=== PATIENT | female | born 1945 | race Caucasian/White ===

== ENCOUNTER 2018-04-02 09:41 | Emergency (ER) | payer MEDICARE, MEDICAID ==
[~2018-04-02] VITALS: Ht 162.6 cm; Wt 81.2 kg
[~2018-04-02 09:41] MED LIST: ALBU8.5H8 IH; HYDR-565 PO; LISI40TA4 PO; METO-539 PO; NAPR-996 PO; OXYB10TA4 PO; SPIIN INH; TRAM50TA2 PO
[2018-04-02 10:17] LABS: BASOPHILS % (AUTO) 0.3 % (0-1); EOSINOPHILS # (AUTO) 0.3 X10'3 (0-0.9); EOSINOPHILS % (AUTO) 2.7 % (0-6); HEMATOCRIT 43.7 % (35.0-45.0); HEMOGLOBIN 14.8 g/dl (12.0-16.0); LYMPHOCYTES # (AUTO) 1.5 X10'3 (1.1-4.8); LYMPHOCYTES % (AUTO) 12.4 % (21-51); MEAN CORPUSCULAR HEMOGLOBIN 32.1 PG (27.0-31.0); MEAN CORPUSCULAR HGB CONC 33.9 % (33.0-36.5); MEAN CORPUSCULAR VOLUME 94.7 FL (78-98); MEAN PLATELET VOLUME 7.9 FL (7.4-10.4); MONOCYTES # (AUTO) 0.7 X10'3 (0-0.9); MONOCYTES % (AUTO) 5.9 % (2-12); NEUTROPHILS # (AUTO) 9.4 X10'3 (1.8-7.7); NEUTROPHILS % (AUTO) 78.7 % (42-75); PLATELET COUNT 278 X10'3 (140-440); RED BLOOD COUNT 4.61 X10'6 (4.20-5.60); RED CELL DISTRIBUTION WIDTH 13.4 % (11.5-14.5); WHITE BLOOD COUNT 11.9 X10'3 (4.5-11.0)
[2018-04-02 10:36] LABS: ALANINE AMINOTRANSFERASE 21 U/L (12-78); ALBUMIN 4.2 G/DL (3.4-5.0); ALBUMIN/GLOBULIN RATIO 1.1 (1.1-1.5); ALKALINE PHOSPHATASE 61 IU/L (46-116); ANION GAP 8 (8-16); ASPARTATE AMINO TRANSFERASE 12 U/L (10-37); BILIRUBIN,TOTAL 1.1 MG/DL (0.1-1.0); BLOOD UREA NITROGEN 20 MG/DL (7-18); BUN/CREATININE RATIO 19.4 (6.6-38.0); CALCIUM 9.4 MG/DL (8.5-10.1); CHLORIDE 100 MMOL/L (99-107); CREATININE 1.03 MG/DL (0.40-0.90); GLUCOSE 128 MG/DL (70-104); SODIUM 137 MMOL/L (135-145); TOTAL CARBON DIOXIDE 29.4 MMOL/L (24-32); TOTAL PROTEIN 7.9 G/DL (6.4-8.2); eGFR 53 ML/MIN
[2018-04-02] MEDS ORDERED: normal saline 1000ml 1,000 ML IV ONE (10:47)
[2018-04-02] MEDS ORDERED: normal saline 1000ML IV soln IVB ONE ×2 (10:50→14:05)
[2018-04-02] MEDS ORDERED: diphenoxylate/atropine tablet (Lomotil) PO ONE (10:50)
[2018-04-02] MEDS: morphine 4 MG/ML inj SYRINge IV PRN ×2 (10:57→12:28)
[2018-04-02] MEDS ORDERED: iohexol 300mg/ml 100ml inj. ONE (11:44)
[2018-04-02 12:03] LABS: CLARITY,URINE SLIGHTLY CLOUDY (Clear); COLOR,URINE YELLOW (Yellow); GLUCOSE, URINE NEGATIVE (Neg); KETONES,URINE NEGATIVE (Neg); LEUKOCYTE ESTERASE ,URINE LARGE (Neg); NITRITES, URINE NEGATIVE (Neg); OCCULT BLOOD,URINE TRACE-INTACT (Neg); PH,URINE 6.5 (4.8-8.0); PROTEIN,URINE NEGATIVE (Neg); UROBILINOGEN,URINE 0.2 E.U/dL (0.2-1.0)
[2018-04-02 12:06] LABS: UA COLLECTION TYPE NON-SPECIFIED
[2018-04-02 12:17] LABS: BACTERIA,URINE 1+ /HPF (Neg); MUCUS STRANDS FEW /LPF (Neg); RBC,URINE 0-2 /HPF (0-2); RENAL CELLS, URINE FEW /HPF; SQUAMOUS EPITHELIAL CELL,UR MANY /LPF (FEW); WBC CLUMPS,URINE FEW /HPF (NEGATIVE)
[2018-04-02 12:18] LABS: HYALINE CASTS 0-3 /LPF (NEGATIVE)
[2018-04-02] MEDS ORDERED: METR500T4 PO (13:36)
[2018-04-02] MEDS ORDERED: ONDA4TAB9 SL (13:39)
[2018-04-02] MEDS ORDERED: metroNIDAZOLE-Flagyl 500mg/NS 100 ML IV ONE (13:40)
[2018-04-02 13:45] LABS: CLARITY,URINE CLEAR (Clear); COLOR,URINE YELLOW (Yellow); GLUCOSE, URINE NEGATIVE (Neg); KETONES,URINE NEGATIVE (Neg); LEUKOCYTE ESTERASE ,URINE SMALL (Neg); NITRITES, URINE NEGATIVE (Neg); OCCULT BLOOD,URINE TRACE-INTACT (Neg); PH,URINE 5.5 (4.8-8.0); PROTEIN,URINE NEGATIVE (Neg); UROBILINOGEN,URINE 0.2 E.U/dL (0.2-1.0)
[2018-04-02 13:46] LABS: UA COLLECTION TYPE CLN CATCH MIDSTREAM
[2018-04-02 13:53] LABS: WBC,URINE 0-4 /HPF (0-4)
[2018-04-02 13:54] LABS: BACTERIA,URINE FEW /HPF (Neg); RBC,URINE 0-2 /HPF (0-2); SQUAMOUS EPITHELIAL CELL,UR FEW /LPF (FEW)
[2018-04-02 15:33] VITALS: BP 128/62
== END 2018-04-02 15:37 | disposition home or self-care (01) ==
LOC: ER 09:42
DX: K52.9 Noninfective gastroenteritis and colitis, unspecified (principal); E86.0 Dehydration; K21.9 Gastro-esophageal reflux disease without esophagitis; Z88.1 Allergy status to other antibiotic agents; Z88.5 Allergy status to narcotic agent; Z88.8 Allergy status to other drugs, medicaments and biological substances; Z91.011 Allergy to milk products
CPT/HCPCS: 36415; 74177; 80053; 81001; 85025; 85610; 87088; 96361; 96365; 96375; 96376; 99285; J2270; J3490; J7030; Q9967

== ENCOUNTER 2018-07-06 12:51 | Inpatient (IN) | payer MEDICARE, MEDICAID ==
[~2018-07-06] VITALS: Ht 162.6 cm; Wt 80.7 kg
[2018-07-06] MEDS ORDERED: pantoprazole 40 MG vial IV ONE (13:40)
[2018-07-06] MEDS ORDERED: normal saline 1000ML IV soln IVB ONE (13:40)
[2018-07-06] MEDS ORDERED: LORazepam 2 mg/ml vial IV ONE (13:40)
[2018-07-06 14:09] LABS: BASOPHILS % (AUTO) 0 % (0-1); EOSINOPHILS % (AUTO) 0.1 % (0-6); HEMATOCRIT 36.5 % (35.0-45.0); HEMOGLOBIN 12.6 g/dl (12.0-16.0); LYMPHOCYTES # (AUTO) 0.3 X10'3 (1.1-4.8); LYMPHOCYTES % (AUTO) 3.2 % (21-51); MEAN CORPUSCULAR HEMOGLOBIN 31.7 PG (27.0-31.0); MEAN CORPUSCULAR HGB CONC 34.4 % (33.0-36.5); MEAN CORPUSCULAR VOLUME 92.2 FL (78-98); MEAN PLATELET VOLUME 7.9 FL (7.4-10.4); MONOCYTES # (AUTO) 0.6 X10'3 (0-0.9); MONOCYTES % (AUTO) 6.2 % (2-12); NEUTROPHILS # (AUTO) 8.1 X10'3 (1.8-7.7); NEUTROPHILS % (AUTO) 90.5 % (42-75); PLATELET COUNT 177 X10'3 (140-440); RED BLOOD COUNT 3.96 X10'6 (4.20-5.60); RED CELL DISTRIBUTION WIDTH 13.7 % (11.5-14.5); WHITE BLOOD COUNT 8.9 X10'3 (4.5-11.0)
[2018-07-06 14:28] LABS: PLATELET ESTIMATE NORMAL; TOTAL CELLS COUNTED 100
[2018-07-06 14:37] LABS: ALANINE AMINOTRANSFERASE 14 U/L (12-78); ALBUMIN 2.5 G/DL (3.4-5.0); ALBUMIN/GLOBULIN RATIO 0.5 (1.1-1.5); ALKALINE PHOSPHATASE 93 IU/L (46-116); ANION GAP 11 (8-16); ASPARTATE AMINO TRANSFERASE 13 U/L (10-37); BILIRUBIN,TOTAL 1.1 MG/DL (0.1-1.0); BLOOD UREA NITROGEN 18 MG/DL (7-18); BUN/CREATININE RATIO 17.5 (6.6-38.0); CALCIUM 8.9 MG/DL (8.5-10.1); CHLORIDE 99 MMOL/L (99-107); CREATININE 1.03 MG/DL (0.40-0.90); GLUCOSE 130 MG/DL (70-104); LIPASE < 50 U/L (73-393); POTASSIUM 3.4 MMOL/L (3.5-5.1); SODIUM 137 MMOL/L (135-145); TOTAL CARBON DIOXIDE 26.7 MMOL/L (24-32); TOTAL PROTEIN 7.1 G/DL (6.4-8.2); eGFR 53 ML/MIN
[2018-07-06] MEDS ORDERED: ondansetron/PF 4mg/2ml inj IV ONE (14:50)
[2018-07-06 15:01] LABS: CLARITY,URINE CLOUDY (Clear); COLOR,URINE YELLOW (Yellow); GLUCOSE, URINE NEGATIVE (Neg); KETONES,URINE NEGATIVE (Neg); LEUKOCYTE ESTERASE ,URINE MODERATE (Neg); NITRITES, URINE POSITIVE (Neg); OCCULT BLOOD,URINE MODERATE (Neg); PROTEIN,URINE 100 mg/dl (Neg)
[2018-07-06 15:07] LABS: UA COLLECTION TYPE NON-SPECIFIED
[2018-07-06 15:08] LABS: BACTERIA,URINE 4+ /HPF (Neg); MUCUS STRANDS NONE SEEN /LPF (Neg); SQUAMOUS EPITHELIAL CELL,UR NONE SEEN /LPF (FEW); WBC,URINE TNTC /HPF (0-4)
[2018-07-06] MEDS ORDERED: DULO-31 PO (15:29)
[2018-07-06] MEDS ORDERED: PANT-47 PO (15:29)
[2018-07-06] MEDS ORDERED: METO-467 PO (15:29)
[2018-07-06] MEDS ORDERED: sulfamethoxazole/trimethoprim DS (800/160mg) tablet PO ONE (15:35)
[2018-07-06] MEDS ORDERED: normal saline 1000ML IV soln IV ONE (15:50)
[2018-07-06] MEDS ORDERED: magnesium hydroxide 30ml (MOM) UD suspension PO PRN (16:05)
[2018-07-06] MEDS ORDERED: mag hydrox/Alum hydrox/simeth 30ml oral suspension PO PRN (16:05)
[2018-07-06] MEDS ORDERED: potassium Cl 40MEQ/NS 500ml 500 ML IV PRN ×2 (16:05)
[2018-07-06] MEDS ORDERED: magnesium Cl slow-release 64mg tablet PO PRN (16:05)
[2018-07-06] MEDS ORDERED: magnesium 4gm in 100ml NS 100 ML IV PRN (16:05)
[2018-07-06] MEDS ORDERED: potassium Cl 20 mEq SR tablet PO PRN ×2 (16:05)
[2018-07-06] MEDS ORDERED: magnesium 1gm/100ml D5W IVPB 100 ML IV PRN (16:05)
[2018-07-06] MEDS: normal saline 1000ml 1,000 ML IV SCH ×2 (16:36→19:29)
[2018-07-06] MEDS: ondansetron/PF 4mg/2ml inj IV PRN (18:24)
[2018-07-06] MEDS: vancomycin/NS 1 GM ADD-VANTAGE 250 ML IV SCH (18:25)
[2018-07-06 19:05] VITALS: BP 147/77
[2018-07-06] MEDS: oxybutynin 5mg tablet PO SCH (19:15)
[2018-07-06] MEDS: acetaminophen 325mg tablet PO PRN (19:15)
[2018-07-06] MEDS: metoprolol tartrate 50mg tablet PO SCH (19:15)
[2018-07-06] MEDS: HYDROcodone/acetaminophen 10/325mg tab PO PRN (19:28)
[2018-07-06] MEDS: ipratropium 0.5 MG/2.5ML nebule IH SCH (19:39)
[2018-07-06] MEDS: lisinopril 20mg tablet PO SCH (21:00)
[2018-07-06 21:10] VITALS: BP 99/57
[2018-07-06] MEDS ORDERED: normal saline 500ml IV soln 500 ML IV ONE (22:30)
[2018-07-06 23:00] VITALS: BP 91/53
[2018-07-06] MEDS ORDERED: midodrine tablet 2.5 MG TABLET PO STA (23:18)
[2018-07-07] VITALS (7 sets, daily range): BP systolic 97–144; BP diastolic 51–77
[2018-07-07] MEDS: vancomycin/NS 1 GM ADD-VANTAGE 250 ML IV SCH ×2 (04:20→17:32)
[2018-07-07] MEDS: normal saline 1000ml 1,000 ML IV SCH ×2 (04:23→16:14)
[2018-07-07 05:11] LABS: BASOPHILS % (AUTO) 0.1 % (0-1); EOSINOPHILS % (AUTO) 0.3 % (0-6); HEMATOCRIT 28.6 % (35.0-45.0); HEMOGLOBIN 9.5 g/dl (12.0-16.0); LYMPHOCYTES # (AUTO) 0.5 X10'3 (1.1-4.8); LYMPHOCYTES % (AUTO) 6.7 % (21-51); MEAN CORPUSCULAR HEMOGLOBIN 31.4 PG (27.0-31.0); MEAN CORPUSCULAR HGB CONC 33.4 % (33.0-36.5); MEAN CORPUSCULAR VOLUME 94.2 FL (78-98); MEAN PLATELET VOLUME 7.9 FL (7.4-10.4); MONOCYTES # (AUTO) 0.5 X10'3 (0-0.9); NEUTROPHILS # (AUTO) 6.5 X10'3 (1.8-7.7); NEUTROPHILS % (AUTO) 85.9 % (42-75); PLATELET COUNT 131 X10'3 (140-440); RED BLOOD COUNT 3.03 X10'6 (4.20-5.60); RED CELL DISTRIBUTION WIDTH 13.3 % (11.5-14.5); WHITE BLOOD COUNT 7.5 X10'3 (4.5-11.0)
[2018-07-07] MEDS: ondansetron/PF 4mg/2ml inj IV PRN ×2 (05:55→16:16)
[2018-07-07] MEDS: HYDROcodone/acetaminophen 10/325mg tab PO PRN ×3 (05:57→21:53)
[2018-07-07 06:01] LABS: PLATELET ESTIMATE NORMAL; TOTAL CELLS COUNTED 100
[2018-07-07 06:23] LABS: ALANINE AMINOTRANSFERASE 14 U/L (12-78); ALBUMIN 1.9 G/DL (3.4-5.0); ALBUMIN/GLOBULIN RATIO 0.5 (1.1-1.5); ALKALINE PHOSPHATASE 65 IU/L (46-116); ANION GAP 8 (8-16); ASPARTATE AMINO TRANSFERASE 10 U/L (10-37); BILIRUBIN,TOTAL 0.5 MG/DL (0.1-1.0); BLOOD UREA NITROGEN 16 MG/DL (7-18); BUN/CREATININE RATIO 13.9 (6.6-38.0); CALCIUM 7.6 MG/DL (8.5-10.1); CHLORIDE 104 MMOL/L (99-107); CHOL/HDL RATIO 14.8 (0.00-4.99); CHOLESTEROL 118 MG/DL (0-200); CREATININE 1.15 MG/DL (0.40-0.90); GLUCOSE 97 MG/DL (70-104); HDL CHOLESTEROL 8 MG/DL (35-60); LDL CHOLESTEROL 51 MG/DL (50-100); MAGNESIUM 1.8 MG/DL (1.5-2.4); SODIUM 138 MMOL/L (135-145); TOTAL CARBON DIOXIDE 26.1 MMOL/L (24-32); TOTAL PROTEIN 5.4 G/DL (6.4-8.2); TRIGLYCERIDES 267 MG/DL (20-135); eGFR 47 ML/MIN
[2018-07-07] MEDS: ipratropium 0.5 MG/2.5ML nebule IH SCH ×4 (06:37→19:38)
[2018-07-07] MEDS: K and/or MAG REPLACEMENT MC SCH (07:38)
[2018-07-07] MEDS: duloxetine 30mg CAPSULE.DR PO SCH (07:46)
[2018-07-07] MEDS: oxybutynin 5mg tablet PO SCH ×2 (07:47→20:41)
[2018-07-07] MEDS: metoprolol tartrate 50mg tablet PO SCH ×2 (07:47→20:00)
[2018-07-07] MEDS: pantoprazole 40mg Tablet.DR PO SCH (07:47)
[2018-07-07] MEDS: piperacillin/tazo 3.375gm/50ml 50 ML IV SCH ×2 (16:54→23:31)
[2018-07-07] MEDS: albuterol 2.5 MG/3 ML nebule NEB PRN (17:37)
[2018-07-07] MEDS: acetaminophen 325mg tablet PO PRN (19:18)
[2018-07-07] MEDS: lactobacillus rhamnosus 10,000 MMU CELLS/CAPSULE PO SCH (20:41)
[2018-07-07] MEDS: lisinopril 20mg tablet PO SCH (20:42)
[2018-07-08] VITALS: BP 127/55
[2018-07-08] MEDS: normal saline 1000ml 1,000 ML IV SCH ×3 (01:44→21:12)
[2018-07-08] MEDS: ondansetron/PF 4mg/2ml inj IV PRN ×3 (03:28→15:25)
[2018-07-08] MEDS: HYDROcodone/acetaminophen 10/325mg tab PO PRN ×3 (03:52→21:13)
[2018-07-08] MEDS: albuterol 2.5 MG/3 ML nebule NEB PRN ×2 (04:01→13:47)
[2018-07-08] MEDS ORDERED: VANCOMYCIN LEVEL IV ONE (04:30)
[2018-07-08] MEDS: vancomycin/NS 1 GM ADD-VANTAGE 250 ML IV SCH (05:24)
[2018-07-08 06:08] LABS: BASOPHILS % (AUTO) 0 % (0-1); EOSINOPHILS % (AUTO) 0.7 % (0-6); HEMATOCRIT 29.3 % (35.0-45.0); HEMOGLOBIN 9.8 g/dl (12.0-16.0); LYMPHOCYTES # (AUTO) 0.4 X10'3 (1.1-4.8); LYMPHOCYTES % (AUTO) 5.8 % (21-51); MEAN CORPUSCULAR HEMOGLOBIN 31.5 PG (27.0-31.0); MEAN CORPUSCULAR HGB CONC 33.5 % (33.0-36.5); MEAN CORPUSCULAR VOLUME 94.3 FL (78-98); MEAN PLATELET VOLUME 8.1 FL (7.4-10.4); MONOCYTES # (AUTO) 0.5 X10'3 (0-0.9); MONOCYTES % (AUTO) 6.7 % (2-12); NEUTROPHILS # (AUTO) 5.9 X10'3 (1.8-7.7); NEUTROPHILS % (AUTO) 86.8 % (42-75); PLATELET COUNT 140 X10'3 (140-440); RED CELL DISTRIBUTION WIDTH 13.4 % (11.5-14.5); WHITE BLOOD COUNT 6.8 X10'3 (4.5-11.0)
[2018-07-08 06:15] LABS: ALANINE AMINOTRANSFERASE 20 U/L (12-78); ALBUMIN 1.7 G/DL (3.4-5.0); ALBUMIN/GLOBULIN RATIO 0.5 (1.1-1.5); ALKALINE PHOSPHATASE 72 IU/L (46-116); ANION GAP 9 (8-16); ASPARTATE AMINO TRANSFERASE 18 U/L (10-37); BILIRUBIN,TOTAL 0.6 MG/DL (0.1-1.0); BLOOD UREA NITROGEN 12 MG/DL (7-18); BUN/CREATININE RATIO 11.9 (6.6-38.0); CALCIUM 7.9 MG/DL (8.5-10.1); CHLORIDE 104 MMOL/L (99-107); CREATININE 1.01 MG/DL (0.40-0.90); GLUCOSE 114 MG/DL (70-104); SODIUM 137 MMOL/L (135-145); TOTAL CARBON DIOXIDE 23.8 MMOL/L (24-32); TOTAL PROTEIN 5.4 G/DL (6.4-8.2); eGFR 54 ML/MIN
[2018-07-08 06:20] LABS: MAGNESIUM 1.9 MG/DL (1.5-2.4)
[2018-07-08 06:21] LABS: POTASSIUM 3.5 MMOL/L (3.5-5.1)
[2018-07-08 07:00] VITALS: BP 123/54
[2018-07-08] MEDS: piperacillin/tazo 3.375gm/50ml 50 ML IV SCH (07:10)
[2018-07-08] MEDS: duloxetine 30mg CAPSULE.DR PO SCH (07:11)
[2018-07-08] MEDS: pantoprazole 40mg Tablet.DR PO SCH (07:11)
[2018-07-08] MEDS: oxybutynin 5mg tablet PO SCH ×2 (07:11→20:33)
[2018-07-08] MEDS: lactobacillus rhamnosus 10,000 MMU CELLS/CAPSULE PO SCH ×2 (07:11→20:33)
[2018-07-08 07:14] LABS: BANDS% (MANUAL) 10 % (0-10); EOSINOPHILS % (MANUAL) 1 % (0-6); LYMPHOCYTES % (MANUAL) 6 % (21-51); MONOCYTES % (MANUAL) 9 % (2-12); NEUTROPHILS % (MANUAL) 74 % (42-75); PLATELET ESTIMATE NORMAL; TOTAL CELLS COUNTED 100
[2018-07-08 07:15] LABS: TOXIC GRANULATION 1+; TOXIC VACUOLATION 1+
[2018-07-08] MEDS: metoprolol tartrate 50mg tablet PO SCH ×2 (07:38→20:00)
[2018-07-08] MEDS: K and/or MAG REPLACEMENT MC SCH (08:00)
[2018-07-08] MEDS: ipratropium 0.5 MG/2.5ML nebule IH SCH ×4 (08:13→19:34)
[2018-07-08 11:00] VITALS: BP 133/63
[2018-07-08] MEDS: aztreonam inj. 1,000 MG in normal saline 100ml IV soln 100 ML IV SCH ×3 (11:44→23:35)
[2018-07-08] MEDS ORDERED: methylPREDNISolone sod succ 125mg/2ml vial IV ONE (14:30)
[2018-07-08] MEDS ORDERED: vancomycin inj 1,250 MG in normal saline 250ml IV soln 250 ML IV SCH (16:00)
[2018-07-08] MEDS: methylPREDNISolone sod succ 125mg/2ml vial IV SCH ×2 (17:34→23:35)
[2018-07-08 19:15] VITALS: BP 153/70
[2018-07-08] MEDS: lisinopril 20mg tablet PO SCH (20:33)
[2018-07-08] MEDS: nystatin 15 GM powder TP SCH (21:17)
[2018-07-08 23:00] VITALS: BP 139/71
[2018-07-09] MEDS: normal saline 1000ml 1,000 ML IV SCH ×4 (02:04→23:46)
[2018-07-09] MEDS: HYDROcodone/acetaminophen 10/325mg tab PO PRN ×4 (04:09→23:40)
[2018-07-09 04:40] LABS: BASOPHILS % (AUTO) 0 % (0-1); EOSINOPHILS % (AUTO) 0 % (0-6); HEMATOCRIT 29.4 % (35.0-45.0); HEMOGLOBIN 9.9 g/dl (12.0-16.0); LYMPHOCYTES # (AUTO) 0.3 X10'3 (1.1-4.8); LYMPHOCYTES % (AUTO) 6.6 % (21-51); MEAN CORPUSCULAR HEMOGLOBIN 31.4 PG (27.0-31.0); MEAN CORPUSCULAR HGB CONC 33.5 % (33.0-36.5); MEAN CORPUSCULAR VOLUME 93.6 FL (78-98); MEAN PLATELET VOLUME 7.9 FL (7.4-10.4); MONOCYTES # (AUTO) 0.2 X10'3 (0-0.9); MONOCYTES % (AUTO) 4.7 % (2-12); NEUTROPHILS # (AUTO) 4.6 X10'3 (1.8-7.7); NEUTROPHILS % (AUTO) 88.7 % (42-75); PLATELET COUNT 173 X10'3 (140-440); RED BLOOD COUNT 3.14 X10'6 (4.20-5.60); RED CELL DISTRIBUTION WIDTH 14.7 % (11.5-14.5); WHITE BLOOD COUNT 5.2 X10'3 (4.5-11.0)
[2018-07-09 05:00] LABS: ALANINE AMINOTRANSFERASE 11 U/L (12-78); ALBUMIN 1.7 G/DL (3.4-5.0); ALBUMIN/GLOBULIN RATIO 0.4 (1.1-1.5); ALKALINE PHOSPHATASE 83 IU/L (46-116); ANION GAP 6 (8-16); ASPARTATE AMINO TRANSFERASE 10 U/L (10-37); BILIRUBIN,TOTAL 0.4 MG/DL (0.1-1.0); BLOOD UREA NITROGEN 16 MG/DL (7-18); BUN/CREATININE RATIO 16.7 (6.6-38.0); CALCIUM 8.4 MG/DL (8.5-10.1); CHLORIDE 107 MMOL/L (99-107); CREATININE 0.96 MG/DL (0.40-0.90); GLUCOSE 169 MG/DL (70-104); MAGNESIUM 2.3 MG/DL (1.5-2.4); POTASSIUM 3.5 MMOL/L (3.5-5.1); SODIUM 141 MMOL/L (135-145); TOTAL CARBON DIOXIDE 27.7 MMOL/L (24-32); eGFR 57 ML/MIN
[2018-07-09 07:45] VITALS: BP 155/72
[2018-07-09] MEDS: ipratropium 0.5 MG/2.5ML nebule IH SCH ×3 (07:59→15:20)
[2018-07-09] MEDS: K and/or MAG REPLACEMENT MC SCH (08:00)
[2018-07-09] MEDS: aztreonam inj. 1,000 MG in normal saline 100ml IV soln 100 ML IV SCH ×3 (08:56→23:40)
[2018-07-09] MEDS: lactobacillus rhamnosus 10,000 MMU CELLS/CAPSULE PO SCH ×2 (08:57→20:10)
[2018-07-09] MEDS: pantoprazole 40mg Tablet.DR PO SCH (08:57)
[2018-07-09] MEDS: metoprolol tartrate 50mg tablet PO SCH ×2 (08:58→20:10)
[2018-07-09] MEDS: oxybutynin 5mg tablet PO SCH ×2 (08:58→20:10)
[2018-07-09] MEDS: duloxetine 30mg CAPSULE.DR PO SCH (08:58)
[2018-07-09] MEDS: methylPREDNISolone sod succ 125mg/2ml vial IV SCH ×3 (08:59→23:40)
[2018-07-09] MEDS: nystatin 15 GM powder TP SCH ×3 (09:01→20:12)
[2018-07-09] MEDS: albuterol 2.5 MG/3 ML nebule NEB PRN ×2 (11:39→19:13)
[2018-07-09 12:42] VITALS: BP 133/60
[2018-07-09 20:00] VITALS: BP 136/78
[2018-07-09] MEDS: lisinopril 20mg tablet PO SCH (20:10)
[2018-07-10] VITALS: BP 134/68
[2018-07-10] MEDS ORDERED: VANCOMYCIN LEVEL IV ONE (03:30)
[2018-07-10 05:14] LABS: BASOPHILS % (AUTO) 0 % (0-1); EOSINOPHILS % (AUTO) 0 % (0-6); HEMATOCRIT 29.4 % (35.0-45.0); HEMOGLOBIN 9.9 g/dl (12.0-16.0); LYMPHOCYTES # (AUTO) 0.6 X10'3 (1.1-4.8); LYMPHOCYTES % (AUTO) 6.5 % (21-51); MEAN CORPUSCULAR HEMOGLOBIN 31.3 PG (27.0-31.0); MEAN CORPUSCULAR HGB CONC 33.5 % (33.0-36.5); MEAN CORPUSCULAR VOLUME 93.2 FL (78-98); MEAN PLATELET VOLUME 8.6 FL (7.4-10.4); MONOCYTES # (AUTO) 0.4 X10'3 (0-0.9); MONOCYTES % (AUTO) 4.4 % (2-12); NEUTROPHILS # (AUTO) 8.5 X10'3 (1.8-7.7); NEUTROPHILS % (AUTO) 89.1 % (42-75); PLATELET COUNT 224 X10'3 (140-440); RED BLOOD COUNT 3.15 X10'6 (4.20-5.60); RED CELL DISTRIBUTION WIDTH 14.9 % (11.5-14.5); WHITE BLOOD COUNT 9.6 X10'3 (4.5-11.0)
[2018-07-10 05:45] LABS: ALANINE AMINOTRANSFERASE 17 U/L (12-78); ALBUMIN/GLOBULIN RATIO 0.5 (1.1-1.5); ALKALINE PHOSPHATASE 76 IU/L (46-116); ANION GAP 8 (8-16); ASPARTATE AMINO TRANSFERASE 14 U/L (10-37); BILIRUBIN,TOTAL 0.3 MG/DL (0.1-1.0); BLOOD UREA NITROGEN 26 MG/DL (7-18); BUN/CREATININE RATIO 23.9 (6.6-38.0); CALCIUM 8.7 MG/DL (8.5-10.1); CHLORIDE 103 MMOL/L (99-107); CREATININE 1.09 MG/DL (0.40-0.90); GLUCOSE 186 MG/DL (70-104); MAGNESIUM 2.4 MG/DL (1.5-2.4); POTASSIUM 3.7 MMOL/L (3.5-5.1); SODIUM 137 MMOL/L (135-145); TOTAL CARBON DIOXIDE 26.4 MMOL/L (24-32); TOTAL PROTEIN 6.2 G/DL (6.4-8.2); eGFR 49 ML/MIN
[2018-07-10] MEDS: HYDROcodone/acetaminophen 10/325mg tab PO PRN ×3 (05:57→20:59)
[2018-07-10 07:08] VITALS: BP 176/81
[2018-07-10] MEDS: ipratropium 0.5 MG/2.5ML nebule IH SCH ×5 (07:27→20:58)
[2018-07-10] MEDS: K and/or MAG REPLACEMENT MC SCH (08:00)
[2018-07-10] MEDS: aztreonam inj. 1,000 MG in normal saline 100ml IV soln 100 ML IV SCH ×2 (08:36→16:38)
[2018-07-10] MEDS: pantoprazole 40mg Tablet.DR PO SCH (08:41)
[2018-07-10] MEDS: lactobacillus rhamnosus 10,000 MMU CELLS/CAPSULE PO SCH ×2 (08:41→20:59)
[2018-07-10] MEDS: methylPREDNISolone sod succ 125mg/2ml vial IV SCH ×2 (08:41→16:37)
[2018-07-10] MEDS: duloxetine 30mg CAPSULE.DR PO SCH (08:41)
[2018-07-10] MEDS: metoprolol tartrate 50mg tablet PO SCH ×2 (08:41→21:00)
[2018-07-10] MEDS: oxybutynin 5mg tablet PO SCH ×2 (08:42→20:59)
[2018-07-10] MEDS: nystatin 15 GM powder TP SCH ×3 (08:43→22:54)
[2018-07-10] MEDS: normal saline 1000ml 1,000 ML IV SCH (10:04)
[2018-07-10] MEDS ORDERED: furosemide 20 MG/2 ML vial IV ONE (11:00)
[2018-07-10 11:44] VITALS: BP 164/86
[2018-07-10] MEDS: albuterol 2.5 MG/3 ML nebule NEB PRN ×2 (17:53→20:59)
[2018-07-10 19:30] VITALS: BP 175/76
[2018-07-10] MEDS: lisinopril 20mg tablet PO SCH (21:01)
[2018-07-11] VITALS (8 sets, daily range): BP systolic 163–183; BP diastolic 71–88
[2018-07-11] MEDS: methylPREDNISolone sod succ 125mg/2ml vial IV SCH ×3 (00:13→16:04)
[2018-07-11] MEDS: aztreonam inj. 1,000 MG in normal saline 100ml IV soln 100 ML IV SCH ×3 (00:13→15:52)
[2018-07-11] MEDS: albuterol 2.5 MG/3 ML nebule NEB PRN ×3 (02:26→23:41)
[2018-07-11] MEDS: LORazepam 0.5 MG tablet PO PRN (02:30)
[2018-07-11] MEDS ORDERED: furosemide 10 MG/1 ML 10ml inj IV ONE (02:35)
[2018-07-11] MEDS ORDERED: nitroGLYCERIN 1gm ointment UD TP ONE (02:35)
[2018-07-11 03:02] LABS: BASOPHILS % (AUTO) 0 % (0-1); EOSINOPHILS # (AUTO) 0.1 X10'3 (0-0.9); EOSINOPHILS % (AUTO) 1.5 % (0-6); HEMATOCRIT 29.9 % (35.0-45.0); HEMOGLOBIN 10.1 g/dl (12.0-16.0); LYMPHOCYTES # (AUTO) 0.5 X10'3 (1.1-4.8); LYMPHOCYTES % (AUTO) 5.8 % (21-51); MEAN CORPUSCULAR HEMOGLOBIN 31.2 PG (27.0-31.0); MEAN CORPUSCULAR HGB CONC 33.8 % (33.0-36.5); MEAN CORPUSCULAR VOLUME 92.4 FL (78-98); MEAN PLATELET VOLUME 7.7 FL (7.4-10.4); MONOCYTES # (AUTO) 0.4 X10'3 (0-0.9); MONOCYTES % (AUTO) 4.4 % (2-12); NEUTROPHILS # (AUTO) 8.2 X10'3 (1.8-7.7); NEUTROPHILS % (AUTO) 88.3 % (42-75); PLATELET COUNT 286 X10'3 (140-440); RED BLOOD COUNT 3.23 X10'6 (4.20-5.60); RED CELL DISTRIBUTION WIDTH 14.6 % (11.5-14.5); WHITE BLOOD COUNT 9.3 X10'3 (4.5-11.0)
[2018-07-11] MEDS: HYDROcodone/acetaminophen 10/325mg tab PO PRN ×4 (03:09→21:07)
[2018-07-11 03:41] LABS: ANION GAP 7 (8-16); BLOOD UREA NITROGEN 29 MG/DL (7-18); CALCIUM 8.4 MG/DL (8.5-10.1); CHLORIDE 102 MMOL/L (99-107); CREATININE 1.16 MG/DL (0.40-0.90); GLUCOSE 160 MG/DL (70-104); POTASSIUM 3.5 MMOL/L (3.5-5.1); SODIUM 137 MMOL/L (135-145); TOTAL CARBON DIOXIDE 28.4 MMOL/L (24-32); eGFR 46 ML/MIN
[2018-07-11 03:42] LABS: ALANINE AMINOTRANSFERASE 7 U/L (12-78); ALBUMIN 2.2 G/DL (3.4-5.0); ALBUMIN/GLOBULIN RATIO 0.5 (1.1-1.5); ALKALINE PHOSPHATASE 73 IU/L (46-116); ASPARTATE AMINO TRANSFERASE 4 U/L (10-37); BILIRUBIN,TOTAL 0.4 MG/DL (0.1-1.0); MAGNESIUM 2.3 MG/DL (1.5-2.4); TOTAL PROTEIN 6.3 G/DL (6.4-8.2)
[2018-07-11] MEDS: K and/or MAG REPLACEMENT MC SCH (08:00)
[2018-07-11] MEDS: duloxetine 30mg CAPSULE.DR PO SCH (09:04)
[2018-07-11] MEDS: pantoprazole 40mg Tablet.DR PO SCH (09:04)
[2018-07-11] MEDS: metoprolol tartrate 50mg tablet PO SCH ×2 (09:05→21:11)
[2018-07-11] MEDS: oxybutynin 5mg tablet PO SCH ×2 (09:05→21:12)
[2018-07-11] MEDS: lactobacillus rhamnosus 10,000 MMU CELLS/CAPSULE PO SCH ×2 (09:05→21:11)
[2018-07-11] MEDS: nystatin 15 GM powder TP SCH ×3 (09:05→21:12)
[2018-07-11] MEDS: ipratropium 0.5 MG/2.5ML nebule IH SCH ×3 (11:39→19:28)
[2018-07-11] MEDS: furosemide 20 MG/2 ML vial IV SCH (21:09)
[2018-07-11] MEDS: ondansetron/PF 4mg/2ml inj IV PRN (21:31)
[2018-07-11] MEDS: lisinopril 20mg tablet PO SCH (22:41)
[2018-07-12 00:04] VITALS: BP 173/76
[2018-07-12] MEDS: aztreonam inj. 1,000 MG in normal saline 100ml IV soln 100 ML IV SCH ×4 (00:28→23:45)
[2018-07-12] MEDS: LORazepam 0.5 MG tablet PO PRN (00:45)
[2018-07-12] MEDS: albuterol 2.5 MG/3 ML nebule NEB PRN (03:31)
[2018-07-12] MEDS: HYDROcodone/acetaminophen 10/325mg tab PO PRN ×5 (03:54→21:44)
[2018-07-12] MEDS: ipratropium 0.5 MG/2.5ML nebule IH SCH ×4 (07:20→19:06)
[2018-07-12 08:00] VITALS: BP 170/65
[2018-07-12] MEDS: K and/or MAG REPLACEMENT MC SCH (08:00)
[2018-07-12] MEDS: lactobacillus rhamnosus 10,000 MMU CELLS/CAPSULE PO SCH ×2 (08:06→20:09)
[2018-07-12] MEDS: duloxetine 30mg CAPSULE.DR PO SCH (08:06)
[2018-07-12] MEDS: methylPREDNISolone sod succ/PF 40mg inj. IV SCH ×2 (08:07→20:10)
[2018-07-12] MEDS: oxybutynin 5mg tablet PO SCH ×2 (08:07→20:10)
[2018-07-12] MEDS: metoprolol tartrate 50mg tablet PO SCH ×3 (08:07→23:45)
[2018-07-12] MEDS: pantoprazole 40mg Tablet.DR PO SCH (08:07)
[2018-07-12] MEDS: furosemide 20 MG/2 ML vial IV SCH ×2 (08:07→20:10)
[2018-07-12] MEDS: nystatin 15 GM powder TP SCH ×3 (08:10→21:10)
[2018-07-12 19:00] VITALS: BP 165/68
[2018-07-12] MEDS: lisinopril 20mg tablet PO SCH (21:08)
[2018-07-13] VITALS: BP 180/71
[2018-07-13 01:00] VITALS: BP 102/54
[2018-07-13] MEDS: HYDROcodone/acetaminophen 10/325mg tab PO PRN ×6 (02:29→23:53)
[2018-07-13 07:07] VITALS: BP 107/65
[2018-07-13] MEDS: ipratropium 0.5 MG/2.5ML nebule IH SCH ×4 (07:21→19:02)
[2018-07-13] MEDS: metoprolol tartrate 50mg tablet PO SCH ×2 (07:39→19:39)
[2018-07-13] MEDS: pantoprazole 40mg Tablet.DR PO SCH (07:39)
[2018-07-13] MEDS: oxybutynin 5mg tablet PO SCH ×2 (07:39→19:39)
[2018-07-13] MEDS: lactobacillus rhamnosus 10,000 MMU CELLS/CAPSULE PO SCH ×2 (07:39→19:39)
[2018-07-13] MEDS: duloxetine 30mg CAPSULE.DR PO SCH (07:39)
[2018-07-13] MEDS: aztreonam inj. 1,000 MG in normal saline 100ml IV soln 100 ML IV SCH ×3 (07:39→23:53)
[2018-07-13] MEDS: furosemide 20 MG/2 ML vial IV SCH ×2 (07:40→19:37)
[2018-07-13] MEDS: nystatin 15 GM powder TP SCH ×3 (07:40→21:10)
[2018-07-13] MEDS: methylPREDNISolone sod succ/PF 40mg inj. IV SCH (07:40)
[2018-07-13] MEDS: K and/or MAG REPLACEMENT MC SCH (08:00)
[2018-07-13 13:03] VITALS: BP 151/55
[2018-07-13] MEDS ORDERED: predniSONE 20 mg tablet PO ONE (13:45)
[2018-07-13 18:30] VITALS: BP 112/73
[2018-07-13] MEDS: lisinopril 20mg tablet PO SCH (21:10)
[2018-07-14] VITALS: BP 169/73
[2018-07-14] MEDS: HYDROcodone/acetaminophen 10/325mg tab PO PRN ×5 (03:59→21:01)
[2018-07-14 07:19] VITALS: BP 138/72
[2018-07-14] MEDS: oxybutynin 5mg tablet PO SCH ×2 (07:32→20:59)
[2018-07-14] MEDS: aztreonam inj. 1,000 MG in normal saline 100ml IV soln 100 ML IV SCH ×2 (07:32→16:23)
[2018-07-14] MEDS: lactobacillus rhamnosus 10,000 MMU CELLS/CAPSULE PO SCH ×2 (07:32→20:59)
[2018-07-14] MEDS: metoprolol tartrate 50mg tablet PO SCH ×2 (07:32→20:59)
[2018-07-14] MEDS: pantoprazole 40mg Tablet.DR PO SCH (07:32)
[2018-07-14] MEDS: duloxetine 30mg CAPSULE.DR PO SCH (07:32)
[2018-07-14] MEDS: furosemide 20 MG/2 ML vial IV SCH ×2 (07:33→20:59)
[2018-07-14] MEDS: K and/or MAG REPLACEMENT MC SCH (07:42)
[2018-07-14] MEDS: nystatin 15 GM powder TP SCH ×3 (07:42→21:03)
[2018-07-14] MEDS: prednisone 10mg tablet PO SCH (08:24)
[2018-07-14] MEDS: ipratropium 0.5 MG/2.5ML nebule IH SCH ×4 (08:32→19:45)
[2018-07-14 11:53] VITALS: BP 145/59
[2018-07-14 19:15] VITALS: BP 146/53
[2018-07-14] MEDS: lisinopril 20mg tablet PO SCH (21:00)
[2018-07-14] MEDS: heparin, porcine 5000 units/ml vial SQ SCH (21:01)
[2018-07-14 23:00] VITALS: BP 144/55
[2018-07-15] MEDS: aztreonam inj. 1,000 MG in normal saline 100ml IV soln 100 ML IV SCH ×4 (00:01→23:35)
[2018-07-15] MEDS: HYDROcodone/acetaminophen 10/325mg tab PO PRN ×5 (01:03→23:41)
[2018-07-15 07:00] VITALS: BP 162/76
[2018-07-15] MEDS: K and/or MAG REPLACEMENT MC SCH (08:00)
[2018-07-15] MEDS: oxybutynin 5mg tablet PO SCH ×2 (08:08→20:35)
[2018-07-15] MEDS: duloxetine 30mg CAPSULE.DR PO SCH (08:08)
[2018-07-15] MEDS: metoprolol tartrate 50mg tablet PO SCH ×2 (08:09→20:35)
[2018-07-15] MEDS: lactobacillus rhamnosus 10,000 MMU CELLS/CAPSULE PO SCH ×2 (08:09→20:35)
[2018-07-15] MEDS: prednisone 10mg tablet PO SCH (08:09)
[2018-07-15] MEDS: pantoprazole 40mg Tablet.DR PO SCH (08:09)
[2018-07-15] MEDS: furosemide 20 MG/2 ML vial IV SCH ×2 (08:09→20:35)
[2018-07-15] MEDS: heparin, porcine 5000 units/ml vial SQ SCH ×2 (08:10→20:36)
[2018-07-15] MEDS: nystatin 15 GM powder TP SCH ×3 (08:11→20:36)
[2018-07-15] MEDS: ipratropium 0.5 MG/2.5ML nebule IH SCH ×4 (08:16→19:49)
[2018-07-15 11:00] VITALS: BP 123/68
[2018-07-15 19:15] VITALS: BP 138/62
[2018-07-15] MEDS: albuterol 2.5 MG/3 ML nebule NEB PRN (19:49)
[2018-07-15] MEDS: lisinopril 20mg tablet PO SCH (20:35)
[2018-07-15] MEDS: ondansetron/PF 4mg/2ml inj IV PRN (20:47)
[2018-07-15 23:00] VITALS: BP 129/60
[2018-07-16] MEDS: HYDROcodone/acetaminophen 10/325mg tab PO PRN ×2 (05:12→09:29)
[2018-07-16 07:00] VITALS: BP 134/68
[2018-07-16] MEDS: ipratropium 0.5 MG/2.5ML nebule IH SCH ×2 (07:00→10:14)
[2018-07-16] MEDS: K and/or MAG REPLACEMENT MC SCH (08:00)
[2018-07-16] MEDS: aztreonam inj. 1,000 MG in normal saline 100ml IV soln 100 ML IV SCH (08:10)
[2018-07-16] MEDS: furosemide 20 MG/2 ML vial IV SCH (08:10)
[2018-07-16] MEDS: prednisone 10mg tablet PO SCH (08:11)
[2018-07-16] MEDS: heparin, porcine 5000 units/ml vial SQ SCH (08:11)
[2018-07-16] MEDS: metoprolol tartrate 50mg tablet PO SCH (08:11)
[2018-07-16] MEDS: duloxetine 30mg CAPSULE.DR PO SCH (08:11)
[2018-07-16] MEDS: pantoprazole 40mg Tablet.DR PO SCH (08:12)
[2018-07-16] MEDS: nystatin 15 GM powder TP SCH (08:12)
[2018-07-16] MEDS: lactobacillus rhamnosus 10,000 MMU CELLS/CAPSULE PO SCH (08:12)
[2018-07-16] MEDS: oxybutynin 5mg tablet PO SCH (08:12)
[2018-07-16] MEDS ORDERED: FURO-150 PO (10:48)
[2018-07-16] MEDS ORDERED: [UNRECOGNIZED DRUG - CODE] IV (10:48)
[2018-07-16 11:00] VITALS: BP 112/55
== END 2018-07-16 13:10 | disposition home health service (06) | DRG 871 ==
LOC: ER 12:52 → ED HOLD 16:04 → SUR 3N 19:01
PROVIDERS: ADMIT Family Medicine; ATTEND Family Medicine
PROC: 05HY33Z Insertion of Infusion Device into Upper Vein, Percutaneous Approach (ICD-10-PCS; principal; 2018-07-12)
DX: A41.51 Sepsis due to Escherichia coli [E. coli] (principal); J81.0 Acute pulmonary edema; N39.0 Urinary tract infection, site not specified; N17.9 Acute kidney failure, unspecified; E44.0 Moderate protein-calorie malnutrition; J45.901 Unspecified asthma with (acute) exacerbation; J90 Pleural effusion, not elsewhere classified; N18.9 Chronic kidney disease, unspecified; F32.9 Major depressive disorder, single episode, unspecified; K22.70 Barrett's esophagus without dysplasia; D63.8 Anemia in other chronic diseases classified elsewhere; E87.6 Hypokalemia; F41.9 Anxiety disorder, unspecified; B96.20 Unspecified Escherichia coli [E. coli] as the cause of diseases classified elsewhere; I27.20 Pulmonary hypertension, unspecified; I08.1 Rheumatic disorders of both mitral and tricuspid valves; I12.9 Hypertensive chronic kidney disease with stage 1 through stage 4 chronic kidney disease, or unspecified chronic kidney disease; K21.9 Gastro-esophageal reflux disease without esophagitis; Z88.1 Allergy status to other antibiotic agents; Z90.710 Acquired absence of both cervix and uterus; Z88.8 Allergy status to other drugs, medicaments and biological substances; Z88.6 Allergy status to analgesic agent; Z91.011 Allergy to milk products; Z79.899 Other long term (current) drug therapy; Z87.440 Personal history of urinary (tract) infections; Z87.891 Personal history of nicotine dependence; Z68.30 Body mass index [BMI] 30.0-30.9, adult
CPT/HCPCS: 36415; 71045; 80053; 80061; 80202; 81001; 83036; 83605; 83690; 83735; 83880; 84145; 84443; 84484; 85025; 87040; 87070; 87077; 87088; 87186; 93306; 94640; 94760; 96374; 96375; 97110; 97116; 97161; 97530; 99285; A6258; C9113; J1644; J1940; J2060; J2405; J2543; J2920; J2930; J3370; J3490; J7030; J7512

== ENCOUNTER 2019-03-14 12:35 | Outpatient (CLI) | payer MEDICARE, MEDICAID ==
[~2019-03-14 12:35] MED LIST changes: +DULO-31 PO; +FURO-150 PO; +HYDR-4353 PO; -HYDR-565 PO; +METO-467 PO; -METO-539 PO; +PANT-47 PO; -TRAM50TA2 PO; +[UNRECOGNIZED DRUG - CODE] IV
== END 2019-03-14 23:59 | disposition home or self-care (01) ==
LOC: VAS 12:35
PROVIDERS: ATTEND Internal Medicine Cardiovascular Disease
DX: M79.605 Pain in left leg (principal); R60.0 Localized edema; R07.9 Chest pain, unspecified
CPT/HCPCS: 93971

== ENCOUNTER 2019-03-19 08:28 | Outpatient (CLI) | payer MEDICARE, MEDICAID ==
[2019-03-19] VITALS (7 sets, daily range): BP systolic 128–169; BP diastolic 72–79
[~2019-03-19] VITALS: Ht 175.3 cm; Wt 84.0 kg
[2019-03-19] MEDS ORDERED: nitroGLYCERIN 0.4mg SUBLingual tab SL PRN (09:15)
[2019-03-19] MEDS ORDERED: normal saline 500ml IV soln 500 ML IV ONE (09:15)
[2019-03-19] MEDS ORDERED: regadenoson 0.4mg/5ml syringe IV ONE ×2 (09:15→09:18)
[2019-03-19] MEDS ORDERED: aminophylline 250mg/10ml inj. IV PRN (09:15)
[2019-03-19] MEDS ORDERED: aminophylline inj. 10 ML IV ONE (09:18)
== END 2019-03-19 23:59 | disposition home or self-care (01) ==
LOC: RAD 08:28
PROVIDERS: ATTEND Internal Medicine Cardiovascular Disease
DX: R07.9 Chest pain, unspecified (principal); M79.606 Pain in leg, unspecified; R60.9 Edema, unspecified
CPT/HCPCS: 78452; 93017; A9500; J0280; J7030

== ENCOUNTER 2019-09-04 17:03 | Emergency (ER) | payer MEDICARE, MEDICAID ==
[~2019-09-04] VITALS: Ht 165.1 cm; Wt 83.9 kg
[2019-09-04 17:48] LABS: BASOPHILS % (AUTO) 0.3 % (0-1); EOSINOPHILS # (AUTO) 0.1 X10'3 (0-0.9); EOSINOPHILS % (AUTO) 1.3 % (0-6); HEMATOCRIT 39.7 % (35.0-45.0); HEMOGLOBIN 13.3 g/dl (12.0-16.0); LYMPHOCYTES # (AUTO) 1.1 X10'3 (1.1-4.8); LYMPHOCYTES % (AUTO) 15.9 % (21-51); MEAN CORPUSCULAR HEMOGLOBIN 31.3 PG (27.0-31.0); MEAN CORPUSCULAR HGB CONC 33.4 g/dL (33.0-36.5); MEAN CORPUSCULAR VOLUME 93.6 FL (78-98); MEAN PLATELET VOLUME 8.2 FL (7.4-10.4); MONOCYTES # (AUTO) 0.5 X10'3 (0-0.9); MONOCYTES % (AUTO) 6.6 % (2-12); NEUTROPHILS # (AUTO) 5.4 X10'3 (1.8-7.7); NEUTROPHILS % (AUTO) 75.9 % (42-75); PLATELET COUNT 242 X10'3 (140-440); RED BLOOD COUNT 4.24 X10'6 (4.20-5.60); RED CELL DISTRIBUTION WIDTH 13.1 % (11.5-14.5); WHITE BLOOD COUNT 7.1 X10'3 (4.5-11.0)
[2019-09-04 17:51] LABS: ALANINE AMINOTRANSFERASE 23 U/L (12-78); ALBUMIN 3.8 G/DL (3.4-5.0); ALKALINE PHOSPHATASE 72 IU/L (46-116); ANION GAP 9 (8-16); ASPARTATE AMINO TRANSFERASE 14 U/L (10-37); BILIRUBIN,TOTAL 0.5 MG/DL (0.1-1.0); BLOOD UREA NITROGEN 19 MG/DL (7-18); BUN/CREATININE RATIO 20.4 (6.6-38.0); CALCIUM 9.2 MG/DL (8.5-10.1); CHLORIDE 103 MMOL/L (99-107); CREATININE 0.93 MG/DL (0.40-0.90); GLUCOSE 122 MG/DL (70-104); POTASSIUM 4.3 MMOL/L (3.5-5.1); SODIUM 141 MMOL/L (135-145); TOTAL CARBON DIOXIDE 29.2 MMOL/L (24-32); TOTAL PROTEIN 7.8 G/DL (6.4-8.2); eGFR 59 ML/MIN
[2019-09-04 17:55] LABS: PARTIAL THROMBOPLASTIN TIME 28 SECONDS (22-32)
[2019-09-04] MEDS ORDERED: METO100T14 PO (19:27)
[2019-09-04] MEDS ORDERED: ondansetron 4mg rapidly disintigrating tab PO ONE (20:35)
[2019-09-04] MEDS ORDERED: LORazepam 1 MG tablet PO ONE (20:35)
[2019-09-04 20:59] VITALS: BP 163/84
== END 2019-09-04 21:01 | disposition home or self-care (01) ==
LOC: ER 17:30
DX: I10 Essential (primary) hypertension (principal); F41.9 Anxiety disorder, unspecified; R11.0 Nausea; G89.29 Other chronic pain; K21.9 Gastro-esophageal reflux disease without esophagitis; Z79.899 Other long term (current) drug therapy; Z88.1 Allergy status to other antibiotic agents; Z88.5 Allergy status to narcotic agent; Z91.011 Allergy to milk products
CPT/HCPCS: 71045; 80053; 84484; 85025; 85610; 85730; 93005; 99284

== ENCOUNTER 2020-02-11 11:54 | Emergency (ER) | payer MEDICARE, MEDICAID ==
[~2020-02-11] VITALS: Ht 167.6 cm; Wt 77.3 kg
[~2020-02-11 11:54] MED LIST changes: -DULO-31 PO; -FURO-150 PO; -METO-467 PO; +METO100T14 PO; -NAPR-996 PO; -[UNRECOGNIZED DRUG - CODE] IV
[2020-02-11 11:55] VITALS: BP 171/99
--- NOTE | 2020-02-11 12:08 | NUR ---
Patient moved to first tent. Awaiting orders.
== END 2020-02-11 13:09 | disposition home or self-care (01) ==
LOC: ER 11:55
DX: R05 Cough (principal); Z20.828 Contact with and (suspected) exposure to other viral communicable diseases; R11.0 Nausea; R06.02 Shortness of breath; I10 Essential (primary) hypertension; K21.9 Gastro-esophageal reflux disease without esophagitis; Z98.890 Other specified postprocedural states; Z88.1 Allergy status to other antibiotic agents; Z88.5 Allergy status to narcotic agent; Z88.8 Allergy status to other drugs, medicaments and biological substances; Z79.899 Other long term (current) drug therapy
CPT/HCPCS: 36415; 87635; 99283

== ENCOUNTER 2021-11-22 06:53 | Day surgery (SDC) | payer MEDICARE, MEDICAID ==
[2021-11-16 10:19] LABS: BASOPHILS % (AUTO) 0.7 % (0-1); EOSINOPHILS # (AUTO) 0.2 X10'3 (0-0.9); EOSINOPHILS % (AUTO) 3.5 % (0-6); LYMPHOCYTES # (AUTO) 1.3 X10'3 (1.1-4.8); LYMPHOCYTES % (AUTO) 23.1 % (21-51); MEAN CORPUSCULAR HEMOGLOBIN 31.7 PG (27.0-31.0); MEAN CORPUSCULAR HGB CONC 33.7 g/dL (33.0-36.5); MEAN PLATELET VOLUME 8.1 FL (7.4-10.4); MONOCYTES # (AUTO) 0.5 X10'3 (0-0.9); MONOCYTES % (AUTO) 7.9 % (2-12); NEUTROPHILS # (AUTO) 3.8 X10'3 (1.8-7.7); NEUTROPHILS % (AUTO) 64.8 % (42-75); PRE OP HEMATOCRIT 39.1 % (35.0-45.0); PRE OP HEMOGLOBIN 13.2 g/dL (12.0-16.0); PRE OP PLATELET COUNT 222 X10'3 (140-440); RED BLOOD COUNT 4.16 X10'6 (4.20-5.60); RED CELL DISTRIBUTION WIDTH 13.2 % (11.5-14.5)
[2021-11-16 10:41] LABS: ALBUMIN 3.6 G/DL (3.4-5.0); ALBUMIN/GLOBULIN RATIO 1.1 (1.1-1.5); ALKALINE PHOSPHATASE 81 IU/L (46-116); BLOOD UREA NITROGEN 21 MG/DL (7-18); BUN/CREATININE RATIO 23.3 (6.6-38.0); CALCIUM 8.6 MG/DL (8.5-10.1); CHLORIDE 104 MMOL/L (99-107); PRE OP ALT 20 U/L (30-65); PRE OP ANION GAP 8 (8-16); PRE OP AST 15 U/L (10-37); PRE OP BILIRUB, TOTAL 0.9 MG/DL (0.0-1.0); PRE OP GLUCOSE 110 MG/DL (70-104); PRE OP SODIUM 142 MMOL/L (135-145); TOTAL CARBON DIOXIDE 30.2 MMOL/L (24-32); eGFR 61 ML/MIN
[~2021-11-22] VITALS: Ht 162.6 cm; Wt 85.7 kg
[2021-11-22] VITALS (18 sets, daily range): BP systolic 134–189; BP diastolic 53–101
[~2021-11-22 06:53] MED LIST changes: -ALBU8.5H8 IH; +ATOR20TA66 PO; +BUDE10.22 INH; +DICL100G30 TOP; +DOCUMENT DATE & TIME OF BETA-BLOCKER PO ONE; +ESCI-8 PO; +ESTR42.510 VG; +LISI40TA13 PO; -LISI40TA4 PO; -OXYB10TA4 PO; -SPIIN INH; +cefazolin/dext.iso 2gm/50ml IV ONE; +famotidine 20mg tablet PO ONE; +ringers solution, lacted 1,000 ML IV SCH
[2021-11-22] MEDS ORDERED: ipratropium/albuterol 3ml nebule NEB STA (07:49)
[2021-11-22] MEDS ORDERED: BUPIVAcaine/PF 2.5 mg/ml (0.25%) 30ml vial ONE (09:26)
[2021-11-22] MEDS ORDERED: LIDOcaine 1% 30ml preserv. free vial ONE (09:26)
[2021-11-22] MEDS ORDERED: fentaNYL/PF 50MCG/1 ML 2ML syringe ONE ×2 (09:39→10:21)
[2021-11-22] MEDS ORDERED: clindamycin-Cleocin 900mg/D5W 50 ML IV ONE (09:45)
[2021-11-22] MEDS ORDERED: ketamine 50mg/5ml syringe ONE (09:53)
[2021-11-22] MEDS ORDERED: LIDOcaine 2% (20mg/ml) 5ml vial ONE (10:02)
[2021-11-22] MEDS ORDERED: neostigmine methylsulfate 1 MG/ML 10ml vial ONE (10:02)
[2021-11-22] MEDS ORDERED: ondansetron/PF 4mg/2ml inj ONE (10:02)
[2021-11-22] MEDS ORDERED: ePHEDrine 50MG/ML INJ. ONE (10:02)
[2021-11-22] MEDS ORDERED: glycopyrrolate 0.2mg/ml inj ONE (10:02)
[2021-11-22] MEDS ORDERED: dexamethasone sod phosphate 4mg/ml inj. ONE (10:02)
[2021-11-22] MEDS ORDERED: BUPIVAcaine/PF 2.5mg/ml (0.25%) 10ml vial ONE (10:02)
[2021-11-22] MEDS ORDERED: propofol inj 20 ML IV ONE (10:02)
[2021-11-22] MEDS ORDERED: rocuronium 10mg/ml inj IV ONE (10:02)
[2021-11-22] MEDS ORDERED: BUPIVACAINE liposomal/PF 13.3 MG/ML vial IM ONE (10:03)
--- NOTE | 2021-11-22 11:07 | NUR ---
Received from OR via [facility], accompanied by Anesthesiologist DR LEVY and report given by Anesthesiologist. PT VERY DROWSY W/LMA, DR LEVY BAGGED PT FOR 5 MINUTES OR SO THEN PLACED ON MASK. PT NOW AWAKE AND LMA D/C BY DR LEVY SAO2 IN HIGH 90'S. PTS BP 187/[address] LEVY TO GIVE 5 MG LABETALOL, GIVEN. ABDOMEN W/4 LAP SITES W/BANDAIDS CDI. Addendum: 11/22/21 at 1143 by Holly Soriano RN Amended: Links added.
[2021-11-22] MEDS ORDERED: labetalol 20mg/4ml (5mg/ml) syringe IV ONE (11:16)
[2021-11-22] MEDS ORDERED: labetalol 20mg/4ml (5mg/ml) syringe IV PRN (11:25)
[2021-11-22] MEDS ORDERED: ringers solution, lacted 1,000 ML IV SCH (11:25)
[2021-11-22] MEDS ORDERED: morphine 2 MG/ML inj. syringe IV PRN (11:25)
[2021-11-22] MEDS ORDERED: ondansetron/PF 4mg/2ml inj IV PRN (11:25)
[2021-11-22] MEDS ORDERED: oxyCODONE/APAP 10/325mg tablet PO PRN (11:30)
[2021-11-22] MEDS ORDERED: oxyCODONE/APAP 5-325mg tablet PO PRN (11:30)
[2021-11-22] MEDS: HYDROmorphone/PF 0.2 MG/ML SYRINGE IV PRN ×2 (11:54→12:15)
--- NOTE | 2021-11-22 13:10 | NUR ---
PT UP TO BSC FOR VOID THEN BACK TO BED, PAINFUL, PAIN MEDS GIVEN. Addendum: 11/22/21 at 1342 by Holly Soriano RN Amended: Links added.
--- NOTE | 2021-11-22 14:47 | NUR ---
PT STATES PAIN IS TOLERABLE, USING IS, SENT HOME W/PT. PT VOIDED X 2 W/1 LARGE INCONTINENT VOID. D/C INSTRUCTIONS GIVEN AND GONE OVER W/PT WHO VERBALIZED UNDERSTANDING. PT D/CD TO HOME VIA W/C TO PRIVATE VEHICLE W/O INCIDENT. Addendum: 11/22/21 at 1558 by Holly Soriano RN Amended: Links added.
== END 2021-11-22 14:47 | disposition home or self-care (01) ==
LOC: PAS 06:53
PROVIDERS: ATTEND Surgery
DX: K43.0 Incisional hernia with obstruction, without gangrene (principal); Z20.822 Contact with and (suspected) exposure to COVID-19; K21.9 Gastro-esophageal reflux disease without esophagitis; E78.2 Mixed hyperlipidemia; I11.0 Hypertensive heart disease with heart failure; G89.29 Other chronic pain; M19.90 Unspecified osteoarthritis, unspecified site; J44.9 Chronic obstructive pulmonary disease, unspecified; Z90.710 Acquired absence of both cervix and uterus; Z98.890 Other specified postprocedural states; Z79.899 Other long term (current) drug therapy; Z88.1 Allergy status to other antibiotic agents; Z88.5 Allergy status to narcotic agent; Z88.8 Allergy status to other drugs, medicaments and biological substances; Z91.011 Allergy to milk products; Z87.891 Personal history of nicotine dependence
CPT/HCPCS: 36415; 49655; 64488; 80053; 82948; 85025; 93005; 94640; 94664; 94760; C1781; C9290; J0690; J1100; J1170; J2405; J2704; J2710; J3010; J3490; J7030; J7120; U0003; U0005; Z7506; Z7508; Z7512; A4215; A4618

== ENCOUNTER 2024-05-26 13:43 | Outpatient (CLI) | payer MEDICARE, MEDICAID ==
[~2024-05-26 13:43] MED LIST changes: -DICL100G30 TOP; +DICL100G59 TOP; -DOCUMENT DATE & TIME OF BETA-BLOCKER PO ONE; -cefazolin/dext.iso 2gm/50ml IV ONE; -famotidine 20mg tablet PO ONE; -ringers solution, lacted 1,000 ML IV SCH
== END 2024-05-26 23:59 | disposition home or self-care (01) ==
LOC: CARD DIAG 13:43
PROVIDERS: ATTEND Nurse Practitioner Family
DX: I08.0 Rheumatic disorders of both mitral and aortic valves (principal); R01.1 Cardiac murmur, unspecified
CPT/HCPCS: 93306